=== PATIENT | male | born 1935 | race Caucasian/White ===

== ENCOUNTER → 2020-03-13 12:42 | Outpatient (CLI) | payer MEDICARE, OTHER | END | disposition home or self-care (01) | LOC: D.MRI 12:42 | PROVIDERS: ATTEND Family Medicine | DX: M54.5 Low back pain (principal); S32.000S Wedge compression fracture of unspecified lumbar vertebra, sequela ==

== ENCOUNTER 2020-03-17 22:59 | Emergency (ER) | payer MEDICARE, OTHER ==
[~2020-03-17] VITALS: Ht 177.8 cm; Wt 85.0 kg
[2020-03-17 23:07] VITALS: BP 140/69; Ht 177.8 cm; Wt 85.0 kg
[2020-03-17] MEDS ORDERED: CRESTOR40 MG PO (23:09)
[2020-03-17] MEDS ORDERED: PROSCAR5 MG PO (23:09)
[2020-03-17] MEDS ORDERED: COREG6.25 MG PO (23:09)
[2020-03-17] MEDS ORDERED: NAMENDA5 MG PO (23:10)
[2020-03-17] MEDS ORDERED: DONEPEZIL HCL10 MG PO (23:10)
[2020-03-17] MEDS ORDERED: NITROQUICK0.4 MG SL (23:10)
[2020-03-17] MEDS ORDERED: FLOMAX0.4 MG PO (23:10)
[2020-03-17] MEDS ORDERED: PLAVIX75 MG PO (23:10)
[2020-03-17] MEDS ORDERED: AVAPRO150 MG PO (23:11)
[2020-03-18 00:19] LABS: BASOPHILS 0.5 % (0-2); EOSINOPHILS 5.2 % (0-7); HEMATOCRIT 34.2 % (42.0-54.0); HEMOGLOBIN 11.5 g/dL (13.5-17.5); IMMATURE GRANULOCYTES 0.2 % (0-5); LYMPHOCYTES 28.5 % (15-50); MCH 30.4 pg (26.0-34.0); MCHC 33.6 g/dL (31.0-37.0); MCV 90.5 fL (80.0-100.0); MEAN PLATELET VOLUME 9.2 fL (7.4-10.4); MONOCYTES 10.6 % (2-11); PLATELET COUNT 203 10x3/uL (130-400); RBC 3.78 10x6/uL (4.20-6.10); RDW 13.2 % (11.5-14.5)
[2020-03-18 00:23] LABS: INR 0.99 (0.85-1.17)
[2020-03-18 00:24] LABS: ANION GAP 8.9 mmol/L (8-16); CALCIUM 8.5 mg/dL (8.5-10.1); CARBON DIOXIDE 29.2 mmol/L (21.0-32.0); CREATININE - SERUM 1.5 mg/dL (0.6-1.3); D-DIMER-QUANTITATIVE 0.85 ug/mLFEU (0.20-0.54); POTASSIUM - SERUM 4.1 mmol/L (3.5-5.1)
[2020-03-18 00:30] LABS: ALBUMIN 3.7 g/dL (3.4-5.0); BILIRUBIN - TOTAL 0.74 mg/dL (0.2-1.3); PROTEIN - SERUM 6.8 g/dL (6.4-8.2)
== END 2020-03-18 01:58 | disposition home or self-care (01) ==
LOC: D.ER 22:59
PROVIDERS: Emergency Medicine
DX: M79.89 Other specified soft tissue disorders (principal); N18.9 Chronic kidney disease, unspecified; R79.89 Other specified abnormal findings of blood chemistry; S80.11XA Contusion of right lower leg, initial encounter; W19.XXXA Unspecified fall, initial encounter; Y93.9 Activity, unspecified; Y92.9 Unspecified place or not applicable